=== PATIENT | male | born 1965 | race Caucasian/White ===

== ENCOUNTER → 2021-04-12 | Outpatient (CLI) | payer OTHER ==
--- NOTE | 2021-04-13 04:00 | RAD ---
XR HIP (WITH OR WITHOUT PELVIS)LEFT 1 VIEW DATE: 04/12/2021 3:10 PM INDICATION: LEFT HIP PAIN COMPARISON: None. FINDINGS: Bones: There is no evidence of acute fracture or dislocation. Joints: The joint spaces are normal. Miscellaneous: None. IMPRESSION: Normal osseous structures. Electronically signed by: Jamie Adams MD (04/13/2021 3:58 AM) BEN
== END ==
LOC: RAD 15:02
PROVIDERS: ATTEND Physician Assistant
DX: M25.552 Pain in left hip (principal)
CPT/HCPCS: 73501